=== PATIENT | female | born 1935 | race Caucasian/White ===

== ENCOUNTER 2020-09-12 18:55 | Emergency (ER) | payer MEDICARE, SELFPAY ==
--- NOTE | ~2020-09-12 | XR_ITS ---
EXAMINATION: [id number] DATE: 09/12/2020 19:57 INDICATION: Right chest pain. TECHNIQUE: A frontal view of the chest and 3 views of the right ribs were obtained. COMPARISON: None. FINDINGS: A calcified left lung nodule is consistent with old granulomatous disease. No pleural effus ion or pneumothorax. The heart size is normal. There is an electronic implant in left anterior chest wall. Surgical clips in the right upper quadrant are likely from cholecystectomy. There are likely ch anges of distal right clavicle resection. IMPRESSION: 1. No rib fracture. Reviewed, dictated and finalized at location A. TH CARE LAW SPECIALIST IMPRESSION: 1. No rib fracture.
--- NOTE | ~2020-09-12 | XR_ITS ---
EXAMINATION: XR shoulder RT min 2V DATE: 09/12/2020 19:57 INDICATION: Right shoulder injury. TECHNIQUE: 5 views of right shoulder were obtained. COMPARISON: None. FINDINGS: Bone alignment is normal. No fracture. There are likely changes of distal clavicle resectio n. There is mild osteoarthritis of glenohumeral joint. There is an electronic implant in left anterio r chest wall. IMPRESSION: 1. Mild osteoarthritis of right glenohumeral joint. Reviewed, dictated and finalized at location A. IFIED PROSTHETIST VICE PRESIDENT
--- NOTE | ~2020-09-12 | XR_ITS ---
EXAMINATION: XR wrist RT min 3V DATE: 09/12/2020 19:57 INDICATION: Right wrist pain. TECHNIQUE: 4 views of right wrist were obtained. COMPARISON: None. FINDINGS: Bone alignment is normal. There is a nondisplaced fracture of radial styloid. There is yoly re osteoarthritis of first carpometacarpal joint. IMPRESSION: 1. Nondisplaced fracture of radial styloid. 2. Severe osteoarthritis of first carpometacarpal joint. Reviewed, dictated and finalized at location A. NISTRATION ASSISTANT
--- NOTE | ~2020-09-12 | CT_ITS ---
EXAMINATION: CT brain wo con DATE: 09/12/2020 19:22 INDICATION: Head injury. TECHNIQUE: Computed tomography (CT) of the head was performed without intravenous contrast. The mA wa s adjusted according to patient size. Iterative reconstruction technique was employed. The dose-lengt h product was 605.33 mGy-cm. COMPARISON: None FINDINGS: There is an old lacunar infarct involving the right basal ganglia and anterior limb right i nternal capsule. There are scattered areas of low attenuation in the cerebral white matter. There is an old infarct in the right frontal lobe. There is no intracranial hemorrhage, acute infarction, or a bnormal intracranial mass lesion. The ventricles are normal in size. There is mild mucosal thickening in the paranasal sinuses. The mastoid air cells are normal. There are likely changes of ocular lens replacement surgeries. IMPRESSION: 1. 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 2. Moderate nonspecific cerebral white matter disease, which likely represents chronic small vessel i schemic disease. Reviewed, dictated and finalized at location A. SETTER IMPRESSION: 1. 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 2. Moderate nonspecific cerebral white matter disease, which likely represents chronic small vessel ischemic disease.
[2020-09-12 18:59] VITALS: BP 187/68; PULSE 77; RESP 20; TEMP 37.1; O2SAT 99
--- NOTE | 2020-09-12 20:13 | ED.FALL ---
HPI - Fall General Chief Complaint: Fall Stated Complaint: fall Time Seen by Provider: 09/12/20 19:01 Source: patient and family Mode of arrival: ambulatory Limitations: no limitations History of Present Illness HPI Narrative: 85-year-old with a history of diabetes, dementia, peripheral vascular disease was brought in by with complaints of fall. Patient states that she tripped on her foot and fell face forward. She denies any loss of consciousness. No neck pain. She complains of right shoulder right wrist and right rib pain. She denies any shortness of breath. MD complaint: fall Onset (ago): hour(s) (1) Fall from: standing Fall witnessed: yes, by family Place fall occurred: home Loss of consciousness: none Prolonged down time: no Symptoms prior to fall: none Context: tripped/slipped Location of injury - extremities: Right: shoulder and arm (wrist) Severity: moderate Severity scale (1-10): 5 Quality: throbbing Associated symptoms (after fall): denies Related Data Allergies Allergy/AdvReac Type Severity Reaction Status Date / Time No Known Allergies Allergy Unknown Unverified 07/27/05 16:10 NKDA Allergy Mild Uncoded 07/23/05 14:47 Review of Systems Review of Systems: All systems reviewed & are unremarkable except as noted in HPI and below Constitutional: Constitutional: Reports no additional constitutional complaints Eyes: Eyes: Reports no additional eye complaints ENT: Reports system reviewed and no additional complaints, except as documented Cardiovascular: Cardiovascular: Reports no additional cardiovascular complaints Gastrointestinal: Gastrointestinal: Reports no additional gastrointestinal complaints Musculoskeletal: Musculoskeletal: Reports no additional musculoskeletal complaints Exam Narrative: Exam Narrative: GENERAL: Well-appearing, thin, and in no acute distress. HEAD: Normocephalic, atraumatic. EYES: PERRLA and EOMI. NECK: Supple. CHEST: Clear to auscultation. No respiratory distress. HEART: Regular rate and rhythm. No murmur heard. Normal peripheral pulses. ABDOMEN: Soft, nontender, nondistended, normal active bowel sounds. EXTREMITIES: Normal range of motion. No edema.pain in the right wrist , no deformity ,tender on palpation , bruise on the rt elbow. SKIN: Warm, dry, no rash. NEURO: No focal deficits. Alert and oriented x3. PSYCH: Normal mood and affect. Course Course Emergency Course: Inform patient and family about the x-ray findings. We will apply splint recommended her to follow-up with Dr. Nowak. Vital Signs Vital signs: Vital Signs Temperature 37.1 C 09/12/20 18:59 Pulse Rate 77 09/12/20 18:59 Respiratory Rate 20 09/12/20 18:59 Blood Pressure 187/68 H 09/12/20 18:59 Pulse Oximetry 99 09/12/20 18:59 Temperature 37.1 C 09/12/20 18:59 Pulse Rate 77 09/12/20 18:59 Respiratory Rate 20 09/12/20 18:59 Blood Pressure 187/68 H 09/12/20 18:59 Pulse Oximetry 99 09/12/20 18:59 MDM - Fall Imaging Data Radiologist's impression: ITS Impressions Head CT 09/12/20 19:23 IMPRESSION: 1. 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 2. Moderate nonspecific cerebral white matter disease, which likely represents chronic small vessel ischemic disease. Ribs w/Chest X-Ray 09/12/20 19:57 IMPRESSION: 1. No rib fracture. Shoulder X-Ray 09/12/20 19:59 IMPRESSION: 1. Mild osteoarthritis of right glenohumeral joint. Wrist X-Ray 09/12/20 20:00 IMPRESSION: 1. Nondisplaced fracture of radial styloid. 2. Severe osteoarthritis of first carpometacarpal joint. Discharge Plan Discharge Clinical Impression: Fracture of wrist Qualifiers: Encounter type: initial encounter Fracture type: closed Laterality: right Qualified Code(s): S62.101A - Fracture of unspecified carpal bone, right wrist, initial encounter for closed fracture Contusion of rib on right
[2020-09-12] MEDS: HYDROcodone/acetaminophen (*CRX) 5-325 MG TABLET 1 TAB (20:16)
[2020-09-12 20:33] VITALS: BP 132/78; PULSE 78; RESP 18; O2SAT 99
== END 2020-09-12 20:34 | disposition home or self-care (01) ==
PROVIDERS: Emergency Provider Family Medicine; PCP Internal Medicine
DX: S52.514A Nondisplaced fracture of right radial styloid process, initial encounter for closed fracture (principal); S20.211A Contusion of right front wall of thorax, initial encounter; E11.51 Type 2 diabetes mellitus with diabetic peripheral angiopathy without gangrene; F03.90 Unspecified dementia, unspecified severity, without behavioral disturbance, psychotic disturbance, mood disturbance, and anxiety; W18.09XA Striking against other object with subsequent fall, initial encounter; R90.82 White matter disease, unspecified; M19.011 Primary osteoarthritis, right shoulder; M18.9 Osteoarthritis of first carpometacarpal joint, unspecified
CPT/HCPCS: 29125; 70450; 71101; 73030; 73110; 99284; A9270